=== PATIENT | female | born 1990 | race Caucasian/White ===

== ENCOUNTER 2020-05-01 12:24 | Emergency (ER) | payer OTHER, SELFPAY ==
[2020-05-01 12:32] VITALS: BP 132/86; PULSE 74; RESP 22; TEMP 36.8; O2SAT 100
--- NOTE | 2020-05-01 12:45 | ED.GENADULT ---
HPI - General Adult General Chief complaint: Headache Stated complaint: pain in head behind ears and in head/blurry vision Time Seen by Provider: 05/01/20 12:45 Source: patient Mode of arrival: ambulatory Limitations: no limitations History of Present Illness HPI narrative: 29-year-old female patient presents to the [facility] with complaints of headaches for the past 2 and half weeks. Patient states that she has had intermittent headaches have come and go mostly in the forehead and it radiates to the back of the bilateral ears. Patient states when they occur the pain goes up from 7 to a 10. Patient states that at the time of the incident she gets tunnel visions. Patient states that sometimes these pains do not last long but a few minutes and then go away. Patient states recently they have been lasting longer. Patient states the migraines did start about 2 and half weeks ago and about a week after it started she did start her period. Patient states that her period ended a few days ago and continues to have these episodes of the headaches. Denies any fevers, body aches or chills. Denies any nausea, vomiting or diarrhea. Patient denies any ear pain, runny nose or sore throat. Denies any or breast-feeding. Patient states she has taken aspirin and ibuprofen here and there but nothing consistent Related Data Allergies Allergy/AdvReac Type Severity Reaction Status Date / Time No Known Allergies Allergy Verified 05/01/20 12:58 Review of Systems Review of Systems: Narrative: CONSTITUTIONAL: Denies fever, chills, or sweats. EYES: Denies visual changes, redness, or discharge. ENT: Denies rhinorrhea, congestion, sore throat, or otalgia. CARDIOVASCULAR: Denies chest pain, palpitations, or edema. RESPIRATORY: Denies cough or dyspnea. GASTROINTESTINAL: Denies abdominal pain, nausea, vomiting, or diarrhea. GENITOURINARY: Denies dysuria or hematuria. SKIN: Denies rash or itching. MUSCULOSKELETAL: Denies back pain, joint pain, or myalgia. NEUROLOGIC: Positive headache, denies numbness, or weakness. PSYCHIATRIC: Denies anxiety or depression. [facility] Family History Family History Mother Diabetes mellitus Grandparent Diabetes mellitus Social History Social History Smoking status: Light tobacco smoker Alcohol intake: never Substance use: unknown Comments At the time of my signature I agree with nursing past medical history, surgical, social, and family history. There is no relevant family history pertinent to the presenting complaint. Exam Narrative: Exam Narrative: GENERAL: Well-appearing, well-nourished, and in no acute distress. HEAD: Normocephalic, atraumatic. EYES: PERRLA and EOM intact without limitation or complaint of pain, no periorbital soft tissue swelling ,no erythema, warmth or tenderness noted, no obvious deformity. No crusting or swelling.no tearing or draining.No photophobia. No nystagmus No FB or lesion on lid eversion. Corneas grossly clear, no obvious FB or hyphens/hypopyon. No injection to sclera. Lids and lashes clear. ENT: Nares clear, no rhinorrhea or epistaxis. Mucous membranes moist. Posterior pharynx no erythema, tonsillar enlargement, exudates or lesions present. 2+ tonsil enlargement noted patient states this is chronic. Bilateral TMs are clear with no erythema or foreign bodies in the canal. NECK: Supple. No lymphadenopathy CHEST: Clear to auscultation. No respiratory distress. HEART: Regular rate and rhythm. No murmur heard. Normal peripheral pulses. ABDOMEN: Soft, nontender, nondistended, normal active bowel sounds. EXTREMITIES: Normal range of motion. No edema. SKIN: Warm, dry, no rash. NEURO: Alert and oriented x4, GCS 15. Cranial nerves II through XII grossly intact. No focal neurological deficits. Normal muscle strength and tone. Normal deep tendon reflexes. Negative Babinski, normal f
== END 2020-05-01 13:05 | disposition home or self-care (01) ==
PROVIDERS: Emergency Provider Nurse Practitioner Family
DX: G43.909 Migraine, unspecified, not intractable, without status migrainosus (principal); F17.200 Nicotine dependence, unspecified, uncomplicated
CPT/HCPCS: 99213; G0463